=== PATIENT | male | born 1985 | race Caucasian/White ===

== ENCOUNTER 2016-07-02 15:38 | Emergency (ER) | payer OTHER ==
[~2016-07-02] VITALS: Ht 175.3 cm; Wt 83.9 kg
[2016-07-02] MEDS ORDERED: FIOR1CAP PO (17:30)
[2016-07-02 17:55] VITALS: BP 145/88
== END 2016-07-02 18:23 | disposition home or self-care (01) ==
LOC: M ED 17:27
DX: F41.9 Anxiety disorder, unspecified (principal)

== ENCOUNTER → 2019-02-22 | Outpatient (REF) | payer OTHER ==
[~2019-02-22] MED LIST: FIOR1CAP PO
== END ==
LOC: M LAB REF 16:55
PROVIDERS: ATTEND Physician Assistant
DX: J02.9 Acute pharyngitis, unspecified (principal)

== ENCOUNTER 2019-03-31 12:58 | Day surgery (SDC) | payer OTHER ==
[~2019-03-31] VITALS: Ht 175.3 cm; Wt 75.4 kg
[2019-03-31] MEDS ORDERED: ADDE20CA3 PO (13:19)
[2019-03-31 15:10] LABS: BASO % 0.2 % (0.0-1.0); EOS % 0.3 % (0.0-3.0); HEMATOCRIT 43.9 % (42.0-52.0); HEMOGLOBIN 15.3 g/dl (13.5-17.5); LYMPH # 1.7 10^3/uL (1.5-5.0); LYMPH % 14.2 % (24.0-44.0); MEAN CORPUSCULAR HEMOGLOBIN 30.8 pg (27.0-33.0); MEAN CORPUSCULAR HGB CONC 34.9 g/dl (32.0-36.5); MEAN CORPUSCULAR VOLUME 88.3 fl (80.0-96.0); MONO # 0.7 10^3/uL (0.0-0.8); MONO % 6.2 % (0.0-5.0); NEUTROPHILS # 9.1 10^3/uL (1.5-8.5); NEUTROPHILS % 78.7 % (36.0-66.0); PLATELET COUNT, AUTOMATED 252 10^3/uL (150-450); RED BLOOD COUNT 4.97 10^6/uL (4.30-6.10); WHITE BLOOD COUNT 11.6 10^3/uL (4.0-10.0)
[2019-03-31 15:38] LABS: ALBUMIN 4.4 GM/DL (3.2-5.2); ALT/SGPT 31 U/L (12-78); BILIRUBIN,DIRECT 0.3 MG/DL (0.0-0.2); BILIRUBIN,TOTAL 1.1 MG/DL (0.2-1.0); BLOOD UREA NITROGEN 13 MG/DL (7-18); CALCIUM LEVEL 9.5 MG/DL (8.5-10.1); CARBON DIOXIDE LEVEL 31 MEQ/L (21-32); CHLORIDE LEVEL 99 MEQ/L (98-107); GLOMERULAR FILTRATION RATE > 60.0 (>60); GLUCOSE, FASTING 80 MG/DL (70-100); LIPASE 93 U/L (73-393); POTASSIUM SERUM 3.8 MEQ/L (3.5-5.1); SODIUM LEVEL 136 MEQ/L (136-145); TOTAL PROTEIN 8.1 GM/DL (6.4-8.2)
[2019-03-31] MEDS ORDERED: ISOVUE-370 76% 100ML VIAL (Q9967) As Ordered ONE (15:40)
[2019-03-31] MEDS ORDERED: NS 1,000 ML IV ONE (15:45)
--- NOTE | 2019-03-31 16:11 | REP ---
Clinical: Acute right lower quadrant pain. Technique: Axial contrast enhanced images from the lung bases to the pubic symphysis using 100 ml Isovue 370 intravenous contrast material with coronal and sagittal re-formations. Findings: Enhancing dilated appendix measures 12 mm maximal diameter with surrounding inflammatory change and small amount of fluid (images 85 - 101). Findings compatible with acute appendicitis. No obstruction or evidence for perforation. No drainable collection or abscess. With the exception of scattered colonic diverticulosis, the remainder of the small and large bowel is unremarkable. Liver, spleen, pancreas, gallbladder, bilateral adrenal glands and kidneys are normal. Further evaluation of the pelvis demonstrates collapsed normal bladder and age appropriate prostate/seminal vesicles with small amount of free fluid in the posterior cul-de-sac. Abdominal aorta and vasculature normal. Lung bases are clear. Skeletal structures are intact. Impression: 1. Acute appendicitis as described above. No evidence for bowel obstruction, perforation, or drainable collection/abscess. Electronically Signed by Ugo Heredia MD 03/31/2019 04:03 P
[2019-03-31] MEDS ORDERED: PIPERACILLIN/TAZOBACTAM SOD 3.375 GM in D5W MINI-BAG PLUS 50 ML IV ONE (16:15)
[2019-03-31] MEDS ORDERED: AMPICILLIN SOD/SULBACTAM SOD 3 GM in D5W MINI-BAG PLUS 100 ML IV ONE (16:30)
--- NOTE | 2019-03-31 16:47 | HPEPDOC ---
General Surgery H&P Date of Admission Mar 31, 2019 Attending Physician: DEYA PEÑALOZA MD History and Physical CHIEF COMPLAINT: abdominal pain HISTORY OF PRESENT ILLNESS: Patient is a relatively healthy 33-year-old male who presented to the emergency room today with complaints of an overnight history of ongoing right-sided lower abdominal pain. He reports pain started roughly about 9 PM worsened overnight and this morning. Feels burning, sharp and localized to the right lower abdomen this morning. Denies any nausea, vomiting, fevers chills or any sick contacts. He presented himself to the emergency room roughly at about 2 PM today was worked up and diagnosed to have acute appendicitis. ALLERGIES: Please see below. HOME MEDICATIONS: Please see below. PAST MEDICAL HISTORY: 1. Anxiety and depression. PAST SURGICAL HISTORY: 1. Right clavicle surgery 2. Right hand surgery 3. right ring finger amputation 3. left elbow surgery PERSONAL/SOCIAL HISTORY: denies smoking, reports moderate alcohol use, denies recreational drug use. REVIEW OF SYSTEMS: GENERAL: Denies chills, fatigue, fever, weight gain and weight loss. HEENT: Denies vision or hearing problems. NECK: Denies any neck pain. CARDIOVASCULAR: Denies chest pain and palpitations. MUSCULOSKELETAL: Denies arthralgias, back pain and thrombophlebitis. SKIN: Denies rash. NEUROLOGIC: Denies headache. PSYCHIATRIC: reports anxiet, depression on meds. HEMATOLOGY/ONCOLOGY: Denies any bleeding or clotting disorder. PULMONARY: Denies chronic cough, dyspnea and wheezing. GASTROINTESTINAL: See HPI. GENITOURINARY: Denies dysuria, frequency, hematuria and nocturia. ENDOCRINE: Denies polydipsia, polyphagia, polyuria, heat or cold intolerance. INFECTIOUS: Denies any recent upper respiratory tract infection, UTI, need for use of antibiotics. NUTRITION: Reports good appetite generally. PHYSICAL EXAMINATION: VITAL SIGNS: Please see below. GENERAL APPEARANCE: Patient sitting on the stretcher appears relatively comfortable. He is awake, alert and oriented. cooperative HEENT: Normocephalic, atraumatic. [place] palpebral conjunctivae. Anicteric sc lerae. Lips moist. CHEST: No chest wall abnormalities. Normal respiratory motion/effort. NECK: Supple. No thyromegaly. No lymphadenopathies. LUNGS: Lung sounds are clear to auscultation bilaterally. No wheezing appreciated. HEART: No chest wall abnormalities. Heart rate and rhythm are regular with no murmurs. ABDOMEN: [Abdomen is relatively flat, soft, nondistended. No umbilical or groin herniations. He is tender on palpation slightly to the right of the midline infraumbilically with minimal guarding on deep palpation SKIN: Warm, moist. EXTREMITIES: Extremities have no deformities. No edema identified. NEUROLOGICAL: Only, alert, oriented . ANCILLARIES: . LABORATORY DATA: Please see below. MICROBIOLOGY: Please see below. IMAGING: CT scan of abdomen and pelvis Enhancing dilated appendix measures 12 mm maximal diameter with surrounding inflammatory change and small amount of fluid (images 85 - 101). Findings compatible with acute appendicitis. No obstruction or evidence for perforation. No drainable collection or abscess. With the exception of scattered colonic diverticulosis, the remainder of the small and large bowel is unremarkable. IMPRESSION AND PLAN: Acute appendicitis with localized peritonitis Patient's been started IV Unasyn while awaiting surgery. His history, physical examination and ancillary studies consistent with acute appendicitis. He only has minimal leukocytosis. Abdominal exam shows mainly localized peritoneal irritation over the right lower quadrant area. He is not showing signs of severe systemic inflammatory response related to this. He was advised for need for surgery. We'll proceed with laparoscopic appendectomy once the operating room is available. Discussed with him the details of the procedure, its risks and benefits including risk for bleeding, infection and subsequent abscess formation, risk of getting nearby bowels or blood vessels in general risks when the anesthesia. He has consented to surgery. For the meantime he'll be kept nothing by mouth, given IV fluid hydration and scheduled doses of the Unasyn. Vital Signs Vital Signs Date Time Temp Pulse Resp B/P (MAP) Pulse Ox O2 Delivery O2 Flow Rate FiO2 03/31/19 14:58 03/31/19 13:15 98.4 105 16 96 Laboratory Data Labs 24H Laboratory Tests 2 03/31/19 14:56: Immature Granulocyte % (Auto) 0.4, Neutrophils (%) (Auto) 78.7H, Lymphocytes (%) (Auto) 14.2L, Monocytes (%) (Auto) 6.2H, Eosinophils (%) (Auto) 0.3, Basophils (%) (Auto) 0.2, Neutrophils # (Auto) 9.1H, Lymphocytes # (Auto) 1.7, Monocytes # (Auto) 0.7, Eosinophils # (Auto) 0.0, Basophils # (Auto) 0.0, Nucleated Red Blood Cells % (auto) 0.0, Anion Gap 6L, Glomerular Filtration Rate > 60.0, Calcium Level 9.5, Total Bilirubin 1.1H, Direct Bilirubin 0.3H, Aspartate Amino Transf (AST/SGOT) 19, Alanine Aminotransferase (ALT/SGPT) 31, Alkaline Phosphatase 77, Total Protein 8.1, Albumin 4.4, Albumin/Globulin Ratio 1.19, Lipase 93 CBC/BMP Laboratory Tests 03/31/19 14:56 Home Medications Scheduled Dextroamphetamine/Amphetamine (Adderall Xr 20 mg Capsule) 20 Mg Cap.er.24h, 20 MG PO DAILY, (Reported) Allergies Coded Allergies: ascorbic acid (Verified Allergy, Unknown, rash, 03/31/19) A-FIB/CHADSVASC A-FIB History Current/History of A-Fib/PAF?: No Current PO Anticoag Therapy: DEYA Adams MD Mar 31, 2019 16:23
[2019-03-31] MEDS ORDERED: UNASYN 3 GM VIAL As Ordered ONE (17:02)
[2019-03-31] MEDS ORDERED: BUPIVACAINE HCL 0.25% 30 ML VIAL As Ordered ONE (17:08)
[2019-03-31] MEDS ORDERED: LIDOCAINE 1% SDV INJ 30 ML VIAL As Ordered ONE (17:08)
[2019-03-31] MEDS ORDERED: METOCLOPRAMIDE INJ 10MG/2ML VIAL (J2765) As Ordered ONE (18:11)
[2019-03-31] MEDS ORDERED: fentaNYL 100 MCG/2 ML INJECTION (J3010) As Ordered ONE ×2 (18:11→18:24)
[2019-03-31] MEDS ORDERED: LIDOCAINE 2% INJ 100 MG/5 ML SDV (FOR ANES.) As Ordered ONE (18:11)
[2019-03-31] MEDS ORDERED: ROCURONIUM BROMIDE 50 MG/5 ML VIAL As Ordered ONE (18:11)
[2019-03-31] MEDS ORDERED: MIDAZOLAM INJ 2 MG/2 ML VIAL (J2250) As Ordered ONE (18:11)
[2019-03-31] MEDS ORDERED: propofoL 200 MG/20 ML VIAL As Ordered ONE (18:11)
[2019-03-31] MEDS ORDERED: SUGAMMADEX SODIUM 500 MG/5 ML VIAL (BRIDION) As Ordered ONE (18:11)
[2019-03-31] MEDS ORDERED: dexameTHASONE 4 MG/ML 1ML VIAL (J1100) As Ordered ONE (18:11)
[2019-03-31] MEDS ORDERED: KETOROLAC 60 MG/2 ML VIAL (J1885) As Ordered ONE (18:11)
[2019-03-31] MEDS ORDERED: ONDANSETRON 4MG/2ML VIAL (J2405) As Ordered ONE (18:11)
[2019-03-31] MEDS ORDERED: ACETAMINOPHEN 1000MG 100ML IV BTL (OFIRMEV) (J0131 PER 10MG) As Ordered ONE (18:24)
[2019-03-31] MEDS ORDERED: ONDANSETRON 4MG/2ML VIAL (J2405) IV PRN (19:15)
[2019-03-31] MEDS ORDERED: PERCOCET 5MG/325MG TAB PO PRN (19:15)
--- NOTE | 2019-03-31 19:16 | ROOPDOC ---
[facility] Report Of Operation Report of Operation DATE OF PROCEDURE: 03/31/19 PREPROCEDURE DIAGNOSES: acute appendicitis. POSTPROCEDURE DIAGNOSES: acute appendicitis, retrocecal appendix. PROCEDURE: Laparoscopic appendectomy. SURGEON: Tyler Hawthorne MD BARN WORKER: AMBIKA Arceo ANESTHESIA: General Anesthesia. ESTIMATED BLOOD LOSS: Approximately 10 mL. COMPLICATIONS: none. REMARKS: healthy 33 M with 1 day history of right lower quadrant pain and tenderness, CT evidence for acute appendicitis. PROCEDURE NOTE: retrocecal appendix, no perforation, thickened to the base but healthy base, small amount of serous fluid at the right and left gutter, perihepatic area, no abscess. DESCRIPTION OF PROCEDURE: . TYLER HAWTHORNE MD Mar 31, 2019 19:16
[2019-03-31] MEDS ORDERED: LR 1,000 ML IV SCH (20:00)
[2019-03-31] MEDS: ACETAMINOPHEN TAB 650MG DOSE (2X325MG) PO SCH (21:46)
[2019-03-31] MEDS: AMPICILLIN SOD/SULBACTAM SOD 3 GM in D5W MINI-BAG PLUS 100 ML IV SCH (21:46)
[2019-03-31 23:25] VITALS: BP 131/61
[2019-04-01] MEDS ORDERED: KETOROLAC 30 MG/ML VIAL (J1885) IV PRN
[2019-04-01 00:05] VITALS: BP 107/66
[2019-04-01 01:28] VITALS: BP 120/70
[2019-04-01] MEDS: ACETAMINOPHEN TAB 650MG DOSE (2X325MG) PO SCH ×3 (02:00→10:15)
[2019-04-01 02:40] VITALS: BP 104/58
[2019-04-01] MEDS: AMPICILLIN SOD/SULBACTAM SOD 3 GM in D5W MINI-BAG PLUS 100 ML IV SCH ×2 (05:51→10:15)
[2019-04-01 06:15] VITALS: BP 122/71
[2019-04-01 07:21] LABS: BASO % 0.1 % (0.0-1.0); EOS % 0.1 % (0.0-3.0); HEMATOCRIT 37.5 % (42.0-52.0); HEMOGLOBIN 13.4 g/dl (13.5-17.5); LYMPH # 1.1 10^3/uL (1.5-5.0); MEAN CORPUSCULAR HEMOGLOBIN 31.4 pg (27.0-33.0); MEAN CORPUSCULAR HGB CONC 35.7 g/dl (32.0-36.5); MEAN CORPUSCULAR VOLUME 87.8 fl (80.0-96.0); MONO # 0.5 10^3/uL (0.0-0.8); MONO % 4.6 % (0.0-5.0); NEUTROPHILS # 8.4 10^3/uL (1.5-8.5); NEUTROPHILS % 83.9 % (36.0-66.0); PLATELET COUNT, AUTOMATED 237 10^3/uL (150-450); RED BLOOD COUNT 4.27 10^6/uL (4.30-6.10); WHITE BLOOD COUNT 10.1 10^3/uL (4.0-10.0)
[2019-04-01 07:50] LABS: BLOOD UREA NITROGEN 14 MG/DL (7-18); CALCIUM LEVEL 8.7 MG/DL (8.5-10.1); CARBON DIOXIDE LEVEL 28 MEQ/L (21-32); CHLORIDE LEVEL 101 MEQ/L (98-107); CREATININE FOR GFR 0.84 MG/DL (0.70-1.30); GLOMERULAR FILTRATION RATE > 60.0 (>60); GLUCOSE, FASTING 117 MG/DL (70-100); POTASSIUM SERUM 3.9 MEQ/L (3.5-5.1); SODIUM LEVEL 137 MEQ/L (136-145)
[2019-04-01] MEDS ORDERED: IBUP-1022 PO (12:25)
--- NOTE | 2019-04-01 12:27 | IPNPDOC ---
Text Note Date of Service The patient was seen on 04/01/19. NOTE POD1 laparoscopic appendectomy retrocecal appendix Patient looks to be doing well, tolerating food, minimal left over discomfort VS stable abdomen: benign, flat, soft, port site incisions with dry, intact dressings, nontender on palpation Imp/Plans: Acute appendicitis OK to d/c home no antibiotics needed prescription for 600 mg motrin q6h prn pain sent follow up in 2 weeks VS,Azeem, I+O VS, Azeem, I+O Laboratory Tests 03/31/19 14:56 04/01/19 06:58 Vital Signs Date Time Temp Pulse Resp B/P (MAP) Pulse Ox O2 Delivery O2 Flow Rate FiO2 04/01/19 06:15 97.6 59 18 122/71 (88) 98 Room Air 03/31/19 19:13 2 I&O- Last 24 Hours up to 6 AM 04/01/19 06:00 Intake Total 1990 ml Output Total 10 ml Balance 1980 ml DEYA PEÑALOZA MD Apr 01, 2019 12:27
== END 2019-04-01 13:45 | disposition home or self-care (01) ==
LOC: M ED 12:58 → M SDC 16:37 → M MS5PR 20:35 → M SDC 04-01 13:45
PROVIDERS: ATTEND Surgery
DX: K35.890 Other acute appendicitis without perforation or gangrene (principal); F41.9 Anxiety disorder, unspecified; F32.9 Major depressive disorder, single episode, unspecified; Z88.1 Allergy status to other antibiotic agents; Z79.899 Other long term (current) drug therapy
CPT/HCPCS: 36415; 44970; 74177; 80048; 80076; 83690; 85025; 88304; 96361; 96365; 96366; 99284; J0131; J1100; J1885; J2250; J2405; J2765; J3010; Q9967

== ENCOUNTER → 2019-09-03 | Outpatient (CLI) | payer OTHER ==
[~2019-09-03] MED LIST changes: +ADDE20CA3 PO; +IBUP-1022 PO
== END ==
LOC: M LABSMTC 09:03
PROVIDERS: ATTEND Family Medicine
DX: Z20.828 Contact with and (suspected) exposure to other viral communicable diseases (principal); Z11.59 Encounter for screening for other viral diseases

== ENCOUNTER → 2020-04-09 | Outpatient (CLI) | payer OTHER ==
--- NOTE | 2020-04-10 14:54 | SLEEPHOME ---
DATE: 04/09/2020 DIAGNOSTIC HOME SLEEP STUDY ORDERED BY: Dm Ugarte PA-C Diagnostic home sleep testing was performed due to concern for the obstructive sleep apnea syndrome in this patient with nonrestorative sleep. For testing, a nocturnal T3 respiratory monitoring device was used. Continuous record was made of pulse, oxygen saturation, air flow, chest and abdominal strain, and body position. 9 hours and 59 minutes of data were reviewed. There were 6 hours and 15 minutes marked as time in bed. During the interval marked time in bed, there were only 10 respiratory events identified of 10 seconds in duration or greater for a respiratory event index 1.6. The events that were seen were obstructive. Baseline pulse rate 58. Pulse rate range 47 to 107. Baseline saturation was 94%. Saturations fell to 89%. Testing was performed in both the supine and non-supine positions. IMPRESSION: Essentially normal diagnostic home sleep testing with mild respiratory patterning.
== END ==
LOC: M SLEEP HO 03-28 10:03
PROVIDERS: ATTEND Physician Assistant
DX: G47.10 Hypersomnia, unspecified (principal)